=== PATIENT | male | born 1955 | race Caucasian/White ===

== ENCOUNTER 2021-06-18 07:08 | Day surgery (SDC) | payer BC ==
[2021-06-18] MEDS ORDERED: Fentanyl 100 MCG/2 ML VIAL ONE (08:05)
[2021-06-18] MEDS ORDERED: Lidocaine 1% PF 5 ML VIAL ONE (08:06)
[2021-06-18] MEDS ORDERED: Naloxone HCl 0.4 mg/ml Vial ONE (08:06)
[2021-06-18] MEDS ORDERED: Sodium Bicarbonate 2.5 MEQ/5 ML VIAL ONE (08:07)
[2021-06-18] MEDS ORDERED: Lidocaine 1% (PF) 30 ML VIAL ONE (08:19)
[2021-06-18] MEDS ORDERED: Midazolam HCl 2 mg/2 ml Vial ONE (08:29)
[2021-06-18 09:43] VITALS: BP 125/81; TEMP 97.4
== END 2021-06-18 10:10 | disposition home or self-care (01) ==
LOC: CSHCT 07:08
PROVIDERS: ATTEND Internal Medicine Hematology & Oncology
PROC: 07DR3ZX Extraction of Iliac Bone Marrow, Percutaneous Approach, Diagnostic (ICD-10-PCS; principal; 2021-06-18)
DX: C83.32 Diffuse large B-cell lymphoma, intrathoracic lymph nodes (principal)
CPT/HCPCS: 77012; 88184; 88237; 88305; J2001; J2250; J2310; J3010